=== PATIENT | male | born 1950 | race Caucasian/White ===

== ENCOUNTER 2019-03-22 16:10 | Outpatient (CLI) | payer OTHER ==
--- NOTE | 2019-03-22 18:17 | Diagnostic Imaging Report ---
ESTER DIGGS [facility] [id number] [facility] [address] [place] [address]. [id number] Report Submission Date: Mar 22, 2019 4:51:38 PM CDT Patient Study Name: MEGAN QUEEN Date: Mar 22, 2019 4:21:36 PM CDT Modality Type: CT\SR Gender: M Description: CT RENAL STONE : 54 Institution: [facility] Physician: ESTER DIGGS Exam: CT abdomen and pelvis without contrast. History: Right flank pain. Hematuria. Axial images through the abdomen and pelvis without oral or IV contrast is submitted along with sagittal and coronal reformatted images. The visualized lower lung white are clear. No free intraperitoneal air is identified. The gallbladder is distended without stones. The liver, spleen and pancreas are normal attenuation. The adrenal glands are normal configuration. The abdominal aorta is of normal caliber and associated with atherosclerotic plaque. No significant periaortic lymphadenopathy is identified. A 3.5 cm cyst is identified in the midpole of the left kidney. A 2.5 cm cyst in the upper pole of the right kidney is noted. Right-sided hydronephrosis and proximal hydroureter is noted secondary to a proximal right ureteral stone measuring 6 mm in greatest diameter. The appendix appears normal in configuration. The small bowel is of normal caliber. Air and stool seen throughout the large intestine. No bony abnormalities are identified. Impression: Right-sided hydronephrosis with proximal hydroureter secondary to a 6 mm proximal right ureteral stone. Bilateral renal cysts. Nonspecific bowel gas pattern. No inflammatory changes in the mesentery or ascites is identified. Electronically signed on Mar 22, 2019 4:51:38 PM CDT by: Nav HOLMAN
== END 2019-03-22 16:12 ==
LOC: RAD 16:10
PROVIDERS: ATTEND Family Medicine
CPT/HCPCS: 74176